=== PATIENT | female | born 1955 | race Caucasian/White ===

== ENCOUNTER 2016-10-21 19:04 | Emergency (ER) | payer SELFPAY ==
[~2016-10-21] VITALS: Ht 160 cm; Wt 82.6 kg
[2016-10-21] MEDS ORDERED: HYDR1TAB12 PO (19:37)
[2016-10-21] MEDS ORDERED: LISI5TAB7 PO (19:38)
[2016-10-21] MEDS ORDERED: ANTIANXIETY (19:45)
[2016-10-21] MEDS ORDERED: TRAM100T2 PO (19:46)
[2016-10-21] MEDS ORDERED: PARO10TA24 PO (19:47)
[2016-10-21] MEDS ORDERED: SODIUM CHLORIDE 0.9% 1,000ML IVBOLUS ONE (20:00)
[2016-10-21] MEDS ORDERED: ONDANSETRON 2MG/ML, 2ML IVPush ONE (20:00)
[2016-10-21] MEDS ORDERED: ONDANSETRON 2MG/ML, 2ML ONE (20:06)
[2016-10-21 20:20] LABS: ASPARTATE AMINO TRANSFERASE 9 U/L (15-37); BLOOD UREA NITROGEN 17 mg/dL (7-18)
[2016-10-21 20:25] LABS: IS PT STATUS REG ER OR PRE ER? YES
[2016-10-21 21:09] VITALS: BP 182/95
== END 2016-10-21 21:11 | disposition home or self-care (01) ==
LOC: ED 19:29
DX: R11.2 Nausea with vomiting, unspecified (principal); I10 Essential (primary) hypertension; E11.9 Type 2 diabetes mellitus without complications; I50.9 Heart failure, unspecified; Z86.73 Personal history of transient ischemic attack (TIA), and cerebral infarction without residual deficits
CPT/HCPCS: 36415; 80053; 83690; 84484; 85025; 96361; 96374; 99284; J2405; J7030

== ENCOUNTER 2016-10-23 10:44 | Inpatient (IN) | payer OTHER ==
[~2016-10-23] VITALS: Ht 160 cm; Wt 90.4 kg
[~2016-10-23 10:44] MED LIST: ANTIANXIETY; HYDR1TAB12 PO; LISI5TAB7 PO; PARO10TA24 PO; TRAM100T2 PO
[2016-10-23] MEDS ORDERED: ALBUTEROL SULFATE 2.5 MG/3 ML ONE (11:17)
[2016-10-23] MEDS ORDERED: ALBUTEROL SULFATE 2.5 MG/3 ML NPPB ONE (11:30)
[2016-10-23] MEDS ORDERED: ACETAMINOPHEN 325 MG TABLET PO ONE ×2 (11:30→13:30)
[2016-10-23] MEDS ORDERED: CEFTRIAXONE PMX 1GM/50ML 50 ML IVPB ONE (11:30)
[2016-10-23] MEDS ORDERED: SODIUM CHLORIDE FLUSH 10ML SYR IVF ONE (11:30)
[2016-10-23 11:46] LABS: ASPARTATE AMINO TRANSFERASE 26 U/L (15-37); BLOOD UREA NITROGEN 16 mg/dL (7-18)
[2016-10-23 11:58] LABS: IS PT STATUS REG ER OR PRE ER? YES
[2016-10-23] MEDS ORDERED: ACETAMINOPHEN 325 MG TABLET ONE ×2 (12:35→13:36)
[2016-10-23] MEDS ORDERED: CEFTRIAXONE PMX 1GM/50ML 50 ML ONE (12:35)
[2016-10-23] MEDS ORDERED: KETOROLAC 30 MG/1 ML IVPush ONE (13:00)
[2016-10-23] MEDS ORDERED: ASPIRIN 81 MG TABLET CHEW PO ONE (13:00)
[2016-10-23] MEDS ORDERED: SODIUM CHLORIDE 0.9% 1,000ML IVBOLUS ONE (13:30)
[2016-10-23] MEDS ORDERED: KETOROLAC 30 MG/1 ML ONE (13:36)
[2016-10-23] MEDS ORDERED: ASPIRIN 81 MG TABLET CHEW ONE (13:36)
[2016-10-23] MEDS ORDERED: LEVOFLOXACIN/PMX 750MG/150ML 150 ML ONE (13:57)
[2016-10-23] MEDS ORDERED: LEVOFLOXACIN/PMX 750MG/150ML 150 ML IV ONE (14:00)
[2016-10-23] MEDS ORDERED: ALBUTEROL/IPRATROPIUM 2.5MG/0.5MG, 3 ML ONE (14:10)
[2016-10-23] MEDS ORDERED: SODIUM CHLORIDE 0.9% 1,000 ML IV SCH (14:16)
[2016-10-23] MEDS: ALBUTEROL/IPRATROPIUM 2.5MG/0.5MG, 3 ML NPPB SCH ×2 (14:20→21:00)
[2016-10-23] MEDS ORDERED: CEFTRIAXONE PMX 1GM/50ML 50 ML IV SCH (14:30)
[2016-10-23] MEDS ORDERED: morphine SULFATE 10 MG/ML, 1ML IVPush PRN (14:30)
[2016-10-23] MEDS ORDERED: DOCUSATE 100 MG CAPSULE PO PRN (14:30)
[2016-10-23] MEDS ORDERED: ACETAMINOPHEN 325 MG TABLET PO PRN (14:30)
[2016-10-23] MEDS ORDERED: POLYETHYLENE GLYCOL 17 GM PACKET PO PRN (14:30)
[2016-10-23] MEDS ORDERED: LABETALOL 5MG/ML, 20ML IVPush PRN (14:30)
[2016-10-23] MEDS ORDERED: BISACODYL 10 MG SUPP PR PRN (14:30)
[2016-10-23] MEDS ORDERED: ONDANSETRON 2MG/ML, 2ML IVPush PRN (14:30)
[2016-10-23] MEDS ORDERED: POTASSIUM CHLORIDE 20 MEQ TAB.ER.PRT PO ONE (14:30)
[2016-10-23 14:32] LABS: ABG COLLECTION SITE RIGHT RADIAL; COLLATERAL CIRCULATION TESTING NORMAL
[2016-10-23 16:03] LABS: IS PT STATUS REG ER OR PRE ER? YES
[2016-10-23 16:58] VITALS: BP 121/72
[2016-10-23] MEDS: DOXYCYCLINE 100 MG in DEXTROSE 5% 250 ML IV SCH (17:01)
[2016-10-23] MEDS: methylPREDNISolone SOD SUCC 125 MG/2 ML IVPush SCH (17:23)
[2016-10-23] MEDS: ENOXAPARIN 40 MG/0.4 ML SQ SCH (17:27)
[2016-10-23] MEDS: INSULIN ASPART 100 UNITS/ML, PEN SQ-INSULIN SCH ×2 (17:36→21:39)
[2016-10-23 20:01] VITALS: BP 121/50
[2016-10-23] MEDS: GUAIFENESIN ER 600 MG TABLET PO SCH (21:39)
[2016-10-23 21:56] LABS: RAPID INFLUENZA A Negative (Negative); RAPID INFLUENZA B Negative (Negative)
[2016-10-23 22:31] LABS: IS PT STATUS REG ER OR PRE ER? NO
[2016-10-24] MEDS: ALBUTEROL/IPRATROPIUM 2.5MG/0.5MG, 3 ML NPPB SCH ×6 (00:10→22:30)
[2016-10-24] MEDS: methylPREDNISolone SOD SUCC 125 MG/2 ML IVPush SCH ×3 (01:41→18:45)
[2016-10-24] MEDS: HYDROcodone/APAP 5/325 TABLET PO PRN ×4 (01:49→21:37)
[2016-10-24 02:27] VITALS: BP 152/84
[2016-10-24] MEDS: DOXYCYCLINE 100 MG in DEXTROSE 5% 250 ML IV SCH ×2 (04:31→17:28)
[2016-10-24 05:29] LABS: BLOOD UREA NITROGEN 15 mg/dL (7-18)
[2016-10-24 06:18] VITALS: BP 143/84
[2016-10-24 07:41] VITALS: BP 135/78
[2016-10-24] MEDS: LISINOPRIL 5 MG TABLET PO SCH (08:12)
[2016-10-24] MEDS: PAROXETINE 10 MG TABLET PO SCH (08:12)
[2016-10-24] MEDS: GUAIFENESIN ER 600 MG TABLET PO SCH ×2 (08:13→21:36)
[2016-10-24] MEDS: INSULIN ASPART 100 UNITS/ML, PEN SQ-INSULIN SCH ×4 (08:14→21:37)
[2016-10-24] MEDS ORDERED: MAGNESIUM SULFATE PMX 2GM/50ML 50 ML IV ONE (10:00)
[2016-10-24] MEDS ORDERED: OMNIPAQUE 350 MG/ML, 100ML BOTTLE ONE (11:46)
[2016-10-24] MEDS: CEFTRIAXONE PMX 1GM/50ML 50 ML IV SCH (12:44)
[2016-10-24 13:40] VITALS: BP 129/80
[2016-10-24] MEDS ORDERED: FUROSEMIDE 20 MG/2 ML IV ONE (14:30)
[2016-10-24] MEDS: ENOXAPARIN 40 MG/0.4 ML SQ SCH (15:34)
[2016-10-24 19:12] VITALS: BP 137/79
[2016-10-25 01:06] VITALS: BP 153/82
[2016-10-25] MEDS: methylPREDNISolone SOD SUCC 125 MG/2 ML IVPush SCH ×3 (02:09→18:34)
[2016-10-25] MEDS: HYDROcodone/APAP 5/325 TABLET PO PRN ×4 (02:09→21:13)
[2016-10-25] MEDS: ALBUTEROL/IPRATROPIUM 2.5MG/0.5MG, 3 ML NPPB SCH ×6 (02:30→23:05)
[2016-10-25] MEDS: DOXYCYCLINE 100 MG in DEXTROSE 5% 250 ML IV SCH ×2 (04:40→16:19)
[2016-10-25 06:10] LABS: BLOOD UREA NITROGEN 16 mg/dL (7-18)
[2016-10-25 07:57] VITALS: BP 131/84
[2016-10-25] MEDS: INSULIN ASPART 100 UNITS/ML, PEN SQ-INSULIN SCH ×4 (08:25→21:13)
[2016-10-25] MEDS: PAROXETINE 10 MG TABLET PO SCH (08:26)
[2016-10-25] MEDS: GUAIFENESIN ER 600 MG TABLET PO SCH ×2 (08:26→21:13)
[2016-10-25] MEDS: LISINOPRIL 5 MG TABLET PO SCH (08:27)
[2016-10-25] MEDS: CEFTRIAXONE PMX 1GM/50ML 50 ML IV SCH (12:21)
[2016-10-25] MEDS ORDERED: FUROSEMIDE 20 MG/2 ML IV ONE (13:30)
[2016-10-25] MEDS: NICOTINE 7 MG/24 HR PATCH.TD24 TD SCH (15:08)
[2016-10-25] MEDS: ENOXAPARIN 40 MG/0.4 ML SQ SCH (15:09)
[2016-10-25 16:20] VITALS: BP 146/87
[2016-10-25 19:42] VITALS: BP 159/86
[2016-10-26 00:07] VITALS: BP 82/49
[2016-10-26 01:15] VITALS: BP 151/91
[2016-10-26] MEDS: methylPREDNISolone SOD SUCC 125 MG/2 ML IVPush SCH ×3 (02:02→17:10)
[2016-10-26 02:19] LABS: OCCBLD OBC PASS
[2016-10-26] MEDS: HYDROcodone/APAP 5/325 TABLET PO PRN ×3 (03:48→17:23)
[2016-10-26] MEDS: ALBUTEROL/IPRATROPIUM 2.5MG/0.5MG, 3 ML NPPB SCH ×6 (03:50→22:30)
[2016-10-26] MEDS: DOXYCYCLINE 100 MG in DEXTROSE 5% 250 ML IV SCH ×2 (04:10→17:10)
[2016-10-26 07:55] VITALS: BP 155/93
[2016-10-26] MEDS: PAROXETINE 10 MG TABLET PO SCH (09:17)
[2016-10-26] MEDS: GUAIFENESIN ER 600 MG TABLET PO SCH ×2 (09:17→19:53)
[2016-10-26] MEDS: INSULIN ASPART 100 UNITS/ML, PEN SQ-INSULIN SCH ×4 (09:18→19:55)
[2016-10-26] MEDS ORDERED: hydrALAzine 20 MG/ML, 1ML IV PRN (09:30)
[2016-10-26] MEDS: CEFTRIAXONE PMX 1GM/50ML 50 ML IV SCH (12:32)
[2016-10-26 13:24] VITALS: BP 137/83
[2016-10-26] MEDS: ENOXAPARIN 40 MG/0.4 ML SQ SCH (15:15)
[2016-10-26] MEDS: NICOTINE 7 MG/24 HR PATCH.TD24 TD SCH (15:16)
[2016-10-26 19:47] VITALS: BP 147/86
[2016-10-26] MEDS: LISINOPRIL 5 MG TABLET PO SCH (19:54)
[2016-10-27 02:00] VITALS: BP 143/83
[2016-10-27] MEDS: methylPREDNISolone SOD SUCC 125 MG/2 ML IVPush SCH ×3 (02:03→17:16)
[2016-10-27] MEDS: HYDROcodone/APAP 5/325 TABLET PO PRN ×4 (02:04→21:15)
[2016-10-27] MEDS: ALBUTEROL/IPRATROPIUM 2.5MG/0.5MG, 3 ML NPPB SCH ×5 (02:30→19:15)
[2016-10-27] MEDS: DOXYCYCLINE 100 MG in DEXTROSE 5% 250 ML IV SCH ×2 (05:41→17:16)
[2016-10-27 09:00] VITALS: BP 143/84
[2016-10-27] MEDS: PAROXETINE 10 MG TABLET PO SCH (09:03)
[2016-10-27] MEDS: GUAIFENESIN ER 600 MG TABLET PO SCH ×2 (09:03→21:01)
[2016-10-27] MEDS: LISINOPRIL 5 MG TABLET PO SCH ×2 (09:04→21:01)
[2016-10-27] MEDS: INSULIN ASPART 100 UNITS/ML, PEN SQ-INSULIN SCH ×4 (09:05→21:00)
[2016-10-27] MEDS: CEFTRIAXONE PMX 1GM/50ML 50 ML IV SCH (12:26)
[2016-10-27 13:36] VITALS: BP 157/90
[2016-10-27] MEDS: ENOXAPARIN 40 MG/0.4 ML SQ SCH (14:26)
[2016-10-27] MEDS: NICOTINE 7 MG/24 HR PATCH.TD24 TD SCH (14:26)
[2016-10-27 20:00] VITALS: BP 153/82
[2016-10-28 02:00] VITALS: BP 135/78
[2016-10-28] MEDS: HYDROcodone/APAP 5/325 TABLET PO PRN ×3 (02:33→14:33)
[2016-10-28] MEDS: methylPREDNISolone SOD SUCC 125 MG/2 ML IVPush SCH ×2 (02:33→11:52)
[2016-10-28] MEDS: ALBUTEROL/IPRATROPIUM 2.5MG/0.5MG, 3 ML NPPB SCH ×2 (06:07→11:00)
[2016-10-28] MEDS: DOXYCYCLINE 100 MG in DEXTROSE 5% 250 ML IV SCH (06:41)
[2016-10-28 07:08] VITALS: BP 145/90
[2016-10-28] MEDS: INSULIN ASPART 100 UNITS/ML, PEN SQ-INSULIN SCH ×2 (08:41→13:34)
[2016-10-28] MEDS: PAROXETINE 10 MG TABLET PO SCH (08:42)
[2016-10-28] MEDS: GUAIFENESIN ER 600 MG TABLET PO SCH (08:42)
[2016-10-28] MEDS: LISINOPRIL 5 MG TABLET PO SCH (08:42)
[2016-10-28] MEDS ORDERED: DOCU-30 PO (11:52)
[2016-10-28] MEDS ORDERED: LISI-167 PO (11:52)
[2016-10-28] MEDS ORDERED: FLUT1DIS3 INH (11:52)
[2016-10-28] MEDS ORDERED: CEFD300C37 PO (11:52)
[2016-10-28] MEDS: CEFTRIAXONE PMX 1GM/50ML 50 ML IV SCH (11:52)
[2016-10-28] MEDS ORDERED: TIOT18CA INH (11:52)
[2016-10-28] MEDS ORDERED: PRED5TAB PO (11:52)
[2016-10-28] MEDS ORDERED: ALBU18HF INH (11:52)
[2016-10-28] MEDS ORDERED: DOXY100T PO (11:52)
[2016-10-28] MEDS ORDERED: DOXYCYCLINE 100MG TABLET PO SCH (17:00)
== END 2016-10-28 15:48 | disposition home or self-care (01) | DRG 871 ==
LOC: ED 13:08 → EDIP 14:17 → 4WST 16:40 → DCLOUNGE 10-28 15:12
PROVIDERS: ADMIT Internal Medicine; ATTEND Internal Medicine
DX: A41.9 Sepsis, unspecified organism (principal); J18.9 Pneumonia, unspecified organism; J96.01 Acute respiratory failure with hypoxia; N17.0 Acute kidney failure with tubular necrosis; E44.0 Moderate protein-calorie malnutrition; J44.0 Chronic obstructive pulmonary disease with (acute) lower respiratory infection; J44.1 Chronic obstructive pulmonary disease with (acute) exacerbation; I50.32 Chronic diastolic (congestive) heart failure; E11.65 Type 2 diabetes mellitus with hyperglycemia; E87.6 Hypokalemia; F17.210 Nicotine dependence, cigarettes, uncomplicated; T38.0X5A Adverse effect of glucocorticoids and synthetic analogues, initial encounter; R59.0 Localized enlarged lymph nodes; F43.10 Post-traumatic stress disorder, unspecified; I11.0 Hypertensive heart disease with heart failure; Z79.84 Long term (current) use of oral hypoglycemic drugs; Z82.49 Family history of ischemic heart disease and other diseases of the circulatory system; Z86.73 Personal history of transient ischemic attack (TIA), and cerebral infarction without residual deficits; Z68.35 Body mass index [BMI] 35.0-35.9, adult; Z71.6 Tobacco abuse counseling; Z90.710 Acquired absence of both cervix and uterus
CPT/HCPCS: 36415; 36600; 71010; 71275; 80048; 80053; 82272; 82803; 82962; 83036; 83605; 83735; 83880; 84145; 84484; 85025; 87040; 87400; 93005; 93306; 94640; 96365; 96375; J0696; J1650; J1815; J1885; J1956; J7060; J7613; J7620; Q9967; J1940; J2930; J3475; J7030; J7512